=== PATIENT | male | born 1970 | race Caucasian/White ===

== ENCOUNTER 2016-07-10 18:30 | Emergency (ER) | payer OTHER ==
[~2016-07-10 18:30] MED LIST: ALBUTEROL17 GM INH; GLUCOPHAGE XR750 MG PO; GLYNASE PO; HYDROCODON-ACE1 EAC5 PO; KLONOPIN PO; LISINOPRIL PO; NEURONTIN800 MG PO; NOVOLOG100 U/M2; SEROQUEL PO; SPIRIVA18 MCG INH; SYMBICORT INH; ZOLOFT PO; ZOVIRAX800 MG PO
[2016-07-10 20:19] LABS: URINE SOURCE CLEAN CATCH
[2016-07-10 20:25] LABS: URINE APPEARANCE CLEAR; URINE BILIRUBIN NEG (NEG); URINE BLOOD NEG (NEG); URINE COLOR YELLOW; URINE GLUCOSE NEG (NEG); URINE KETONE TRACE (NEG); URINE LEUKOCYTE ESTERASE NEG (NEG); URINE NITRATE NEG (NEG); URINE PH 5.5 (5-8); URINE PROTEIN TRACE (NEG); URINE SPECIFIC GRAVITY 1.023 (1.003-1.035)
[2016-07-10 20:33] LABS: CULTURE INDICATED? NO
== END 2016-07-10 21:19 | disposition home or self-care (01) ==
LOC: CED 18:30
DX: S39.012A Strain of muscle, fascia and tendon of lower back, initial encounter (principal); E11.9 Type 2 diabetes mellitus without complications; J44.9 Chronic obstructive pulmonary disease, unspecified; Z87.442 Personal history of urinary calculi; Z79.51 Long term (current) use of inhaled steroids; Z79.899 Other long term (current) drug therapy; X58.XXXA Exposure to other specified factors, initial encounter
CPT/HCPCS: 81003; 82947; 96372; 99284; J1885